=== PATIENT | female | born 1985 | race Two or more races ===

== ENCOUNTER 2019-04-10 20:56 | Emergency (ER) | payer OTHER ==
[~2019-04-10] VITALS: Ht 152.4 cm; Wt 68.2 kg
[2019-04-10] MEDS ORDERED: IBUPROFEN 600 MG TABLET PO ONE (22:45)
[2019-04-10] MEDS ORDERED: OXYMETAZOLINE HCL 0.05% 15 ML NASAL SPRAY NASAL ONE (22:45)
[2019-04-10 22:51] VITALS: BP 123/79
== END 2019-04-10 23:02 | disposition home or self-care (01) ==
LOC: EMS 20:57
DX: S00.33XA Contusion of nose, initial encounter (principal); R09.81 Nasal congestion; W51.XXXA Accidental striking against or bumped into by another person, initial encounter; Y93.89 Activity, other specified; Y92.89 Other specified places as the place of occurrence of the external cause; Y99.8 Other external cause status